=== PATIENT | female | born 2000 | race Caucasian/White ===

== ENCOUNTER 2022-11-21 12:38 | Emergency (ER) | payer OTHER ==
[~2022-11-21] VITALS: Ht 165.1 cm; Wt 77.1 kg
[2022-11-21 12:47] VITALS: BP_SYST 132
[2022-11-21] MEDS ORDERED: cefTRIAXone 1 GM in LIDOCAINE 1%, 20 ML MDV 2.1 ML IM ONE (13:15)
[2022-11-21] MEDS ORDERED: KETOROLAC TROMETHAMINE 60 MG/2 ML VIAL IM ONE (13:15)
[2022-11-21] MEDS ORDERED: PENI250T2 PO ×2 (13:46→15:32)
[2022-11-21] MEDS ORDERED: NAPR-1172 PO ×2 (13:46→15:32)
[2022-11-21 14:09] VITALS: BP_SYST 135
== END 2022-11-21 14:09 | disposition home or self-care (01) ==
LOC: SED 12:38
DX: K08.89 Other specified disorders of teeth and supporting structures (principal); Z79.899 Other long term (current) drug therapy
CPT/HCPCS: 99284; 96372; J0696; J1885; J2001